=== PATIENT | female | born 1970 | race Two or more races ===

== ENCOUNTER 2018-03-13 14:09 | Outpatient (CLI) | payer OTHER | END 2018-03-13 14:17 | disposition home or self-care (01) | LOC: MAMO-SONO 14:09 | DX: N60.12 Diffuse cystic mastopathy of left breast (principal) ==

== ENCOUNTER 2024-02-12 14:25 | Outpatient (CLI) | payer OTHER | END 2024-02-12 14:32 | disposition home or self-care (01) | LOC: MAMO-SONO 14:25 | PROVIDERS: ATTEND Otolaryngology | DX: N60.19 Diffuse cystic mastopathy of unspecified breast (principal) ==

== ENCOUNTER 2024-08-04 13:37 | Inpatient (IN) | payer OTHER ==
[~2024-08-04] VITALS: Ht 165.1 cm; Wt 137.9 kg
[2024-08-04] MEDS ORDERED: CRESTOR40 MG PO (14:14)
--- NOTE | 2024-08-04 14:31 | NUR ---
PTE ALERTA Y ORIENTADA X3 QUIEN REFIERE VENIR POR VERTIGO Y TONY DE TATIANA. SE REALIZA EKG POR PROTOCOLO Y DXT 138MG/DL. SE PRESENTA A MD INFANZON QUIEN INDICA UBICAR PTE EN FT
[2024-08-04] MEDS ORDERED: 0.9 % SODIUM CHLORIDE 500 ML IV ONE (16:30)
--- NOTE | 2024-08-04 16:35 | NUR ---
SE EDUCA A PTE SOBRE TX MEDICO, SE PILY MUESTRAS DE LABORATORIO UTILIZANDO MEDIDAS ASEPTICAS. SE COLOCA H/L LALA DE EDEMA. SE ADMINISTRAN MEDICAMENTOS LOS CUALES TOLERA. SE NOTIFICA ESTUDIO DE MRI PENDIENTE.
[2024-08-04 16:54] LABS: HEMATOCRIT 43.1 % (36.0-45.00); HEMOGLOBIN 14.7 g/dL (12.0-15.00); MEAN CELL VOLUME 92.6 fL (80.00-100.00); MEAN CORPUSCULAR HEMOGLOBIN 31.7 pg (27.00-32.0); MEAN CORPUSCULAR HGB CONC 34.2 g/dl (32.0-36.0); PLATELET COUNT 226 K/uL (150-450); RED BLOOD COUNT 4.65 M/uL (4.00-6.00); RED CELL DISTRIBUTION WIDTH 13.2 % (11.5-14.5)
[2024-08-04 17:16] LABS: PH,URINE 6.5 (5.0-8.0); URINE APPEARANCE Clear; URINE BILIRRUBIN Negative (NEGATIVE); URINE BLOOD Trace; URINE COLOR Yellow; URINE GLUCOSE Negative (NEGATIVE); URINE KETONE Negative (NEGATIVE); URINE LEUKOCYTE Negative; URINE NITRATE Negative; URINE PROTEIN Negative (NEGATIVE); URINE UROBILINOGEN 0.2 E.U./dl
[2024-08-04 17:20] LABS: URINE BACTERIA 74.3 uL (0.0-1933); URINE RBC 10.1 uL (0.0-20.8)
[2024-08-04 17:21] LABS: ALBUMIN 4.4 gm/dL (3.4-5.0); BILIRUBIN TOTAL 0.41 mg/dL (0.3-1.2); CALCIUM 9.7 mg/dL (8.5-10.1); CREATININE SERUM 0.73 mg/dL (0.55-1.02); GFR 82.77; GLOBULINA 3.8 G/DL (2.4-3.5); POTASSIUM 4.49 mEq/L (3.5-5.1); TOTAL PROTEIN 8.2 gm/dL (6.4-8.2)
[2024-08-04] MEDS ORDERED: DEXTROSE 5 % AND 0.9 % NACL 1,000 ML IV SCH (17:30)
[2024-08-04 17:31] LABS: URINE EPITHELIAL CELLS 0.1 uL (0.0-38.8); URINE WBC 0.3 uL (0.0-23.2)
[2024-08-04] MEDS ORDERED: FAMOTIDINE/PF 20 MG/10 ML SYRINGE IV SCH (17:34)
[2024-08-04] MEDS ORDERED: ACETAMINOPHEN 500 MG GEL..CAP PO STA (17:51)
[2024-08-04] MEDS ORDERED: ACETAMINOPHEN 500 MG GEL..CAP PO PRN (18:00)
[2024-08-04 18:23] LABS: INR 1.03; PARTIAL THROMBOPLASTIN TIME 27.6 SECONDS (22.0-34.0); PROTHROMBIN TIME 11.2 SECONDS (9.0-11.5)
[2024-08-04 18:35] LABS: C-REACTIVE PROTEIN < 0.29 MG/DL (0.00-0.29)
[2024-08-04 19:21] VITALS: BP 102/59; O2SAT 95
[2024-08-05 01:29] VITALS: BP 95/60; O2SAT 98
[2024-08-05 08:10] VITALS: BP 111/68; O2SAT 98
[2024-08-05] MEDS ORDERED: FAMOTIDINE/PF 20 MG/2 ML VIAL IV SCH (09:00)
[2024-08-05] MEDS ORDERED: MECLIZINE HCL 12.5 MG TABLET PO STA (10:34)
[2024-08-05 17:57] VITALS: BP 123/73; O2SAT 100
[2024-08-05] MEDS ORDERED: CRESTOR40 MG PO (19:09)
[2024-08-05] MEDS ORDERED: MECLIZINE HCL12.5 MG PO (19:09)
== END 2024-08-05 20:10 | disposition home or self-care (01) | DRG 149 ==
LOC: ER 13:39 → MEDJ 18:20
PROVIDERS: Nurse Practitioner Family; ADMIT Internal Medicine Geriatric Medicine; ATTEND Internal Medicine Geriatric Medicine
PROC: BW38Y0Z Magnetic Resonance Imaging (MRI) of Head using Other Contrast, Unenhanced and Enhanced (ICD-10-PCS; principal; 2024-08-04)
PROC: B030ZZZ Magnetic Resonance Imaging (MRI) of Brain (ICD-10-PCS; 2024-08-04)
PROC: BR30Y0Z Magnetic Resonance Imaging (MRI) of Cervical Spine using Other Contrast, Unenhanced and Enhanced (ICD-10-PCS; 2024-08-04)
PROC: BR30ZZZ Magnetic Resonance Imaging (MRI) of Cervical Spine (ICD-10-PCS; 2024-08-04)
DX: R42 Dizziness and giddiness (principal); R51.9 Headache, unspecified; R26.81 Unsteadiness on feet; Z20.822 Contact with and (suspected) exposure to COVID-19
CPT/HCPCS: 70546; 70549

== ENCOUNTER 2025-02-28 07:10 | Outpatient (CLI) | payer OTHER ==
[~2025-02-28 07:10] MED LIST: CRESTOR40 MG PO; MECLIZINE HCL12.5 MG PO
== END 2025-03-01 08:24 | disposition home or self-care (01) ==
LOC: MAMO-SONO 07:10
PROVIDERS: ATTEND Otolaryngology
DX: G35 Multiple sclerosis (principal); R31.9 Hematuria, unspecified; N60.19 Diffuse cystic mastopathy of unspecified breast; D24.9 Benign neoplasm of unspecified breast

== ENCOUNTER 2025-05-19 12:23 | Outpatient (CLI) | payer OTHER | END 2025-05-19 12:32 | disposition home or self-care (01) | LOC: SONOGRAMA 12:23 | PROVIDERS: ATTEND Otolaryngology | DX: E04.2 Nontoxic multinodular goiter (principal); G35 Multiple sclerosis ==

== ENCOUNTER 2025-09-29 09:21 | Outpatient (CLI) | payer OTHER | END 2025-09-29 09:25 | disposition home or self-care (01) | LOC: SONOGRAMA 09:21 | PROVIDERS: ATTEND Otolaryngology | DX: E04.2 Nontoxic multinodular goiter (principal) ==